=== PATIENT | male | born 1945 | race American Indian/Alaskan Native ===

== ENCOUNTER 2018-11-18 09:03 | Outpatient (CLI) | payer MEDICARE | END 2018-11-18 09:04 | disposition home or self-care (01) | LOC: C.LAB 09:03 | DX: E11.65 Type 2 diabetes mellitus with hyperglycemia (principal); E78.2 Mixed hyperlipidemia ==

== ENCOUNTER 2019-03-07 10:23 | Outpatient (CLI) | payer MEDICARE | END 2019-03-07 10:24 | disposition home or self-care (01) | LOC: C.LAB 10:23 ==